=== PATIENT | male | born 1980 | race Caucasian/White ===

== ENCOUNTER 2017-08-24 04:51 | Inpatient (IN) | payer OTHER ==
[~2017-08-24] VITALS: Ht 180.3 cm; Wt 63.5 kg
[2017-08-24 07:52] VITALS: BP 116/75
[2017-08-24] MEDS ORDERED: ENOXAPARIN 40 MG/0.4 ML SQ SCH (11:00)
[2017-08-24] MEDS ORDERED: ACETAMINOPHEN 325 MG TABLET PO PRN (11:00)
[2017-08-24] MEDS ORDERED: ONDANSETRON ODT 4 MG PO PRN (11:00)
[2017-08-24] MEDS ORDERED: hydrALAzine 20 MG/ML, 1ML IVPush PRN (11:00)
[2017-08-24] MEDS: HYDROmorphone 2 MG/ML, 1ML IVPush PRN ×4 (12:02→23:06)
[2017-08-24 12:19] LABS: MEAN CORPUSCULAR HEMOGLOBIN 38.2 pg (27.5-34.5); MEAN CORPUSCULAR HGB CONC 34.4 g/dL (33.2-36.2); MEAN CORPUSCULAR VOLUME 111.1 fL (81-97); MEAN PLATELET VOLUME 9.8 fL (7.4-10.4); PLATELET COUNT 131 x10^3/uL (130-400); RED BLOOD COUNT 3.88 x10^6/uL (4.38-5.82)
[2017-08-24 12:26] LABS: ALANINE AMINOTRANSFERASE 103 U/L (12-78); ALBUMIN 3.2 g/dL (3.4-5.0); ANION GAP 9 mmol/L (5-15); CALCIUM 7.9 mg/dL (8.5-10.1); CHLORIDE 99 mmol/L (98-107)
[2017-08-24 12:39] LABS: ALKALINE PHOSPHATASE 79 U/L (45-117); BILIRUBIN,TOTAL 1.2 mg/dL (0.2-1.0); TOTAL PROTEIN 6.2 g/dL (6.4-8.2)
[2017-08-24 13:04] LABS: BASOPHILS # (AUTO) 0.03 x10^3/uL (0-0.1); BASOPHILS % (AUTO) 0 % (0-1); EOSINOPHILS # (AUTO) 0.49 x10^3/uL (0-0.4); EOSINOPHILS % (AUTO) 7 % (1-7); LYMPHOCYTES # (AUTO) 0.79 x10^3/uL (1-3.4); LYMPHOCYTES % (AUTO) 11 % (22-44); MD MORPH REVIEW ONLY; MONOCYTES # (AUTO) 1.14 x10^3/uL (0.2-0.8); MONOCYTES % (AUTO) 15 % (2-9); NEUTROPHILS # (AUTO) 5.06 x10^3/uL (1.8-6.8); NEUTROPHILS % (AUTO) 67 % (42-75)
[2017-08-24 13:07] LABS: <PLATELET ESTIMATE> ADEQUATE; ANISOCYTOSIS 1+; LARGE PLATELETS 1+
[2017-08-24] MEDS: D5%-0.9% NACL+KCL 20MEQ 1,000 ML IV SCH (14:23)
[2017-08-24 14:38] VITALS: BP 113/77
[2017-08-24] MEDS ORDERED: POTASSIUM CHLORIDE 20 MEQ TAB.ER.PRT PO ONE (15:00)
[2017-08-24 18:40] VITALS: BP 109/73
[2017-08-25] MEDS: D5%-0.9% NACL+KCL 20MEQ 1,000 ML IV SCH ×3 (00:26→21:18)
[2017-08-25 02:10] VITALS: BP 122/76
[2017-08-25] MEDS: HYDROmorphone 2 MG/ML, 1ML IVPush PRN ×2 (04:54→08:06)
[2017-08-25 05:40] LABS: CHLORIDE 104 mmol/L (98-107)
[2017-08-25 06:12] LABS: ALANINE AMINOTRANSFERASE 85 U/L (12-78); ALBUMIN 2.9 g/dL (3.4-5.0); ALKALINE PHOSPHATASE 69 U/L (45-117); ANION GAP 9 mmol/L (5-15); BILIRUBIN,TOTAL 0.9 mg/dL (0.2-1.0); CALCIUM 8.2 mg/dL (8.5-10.1); CHOL/HDL RATIO 2.8; CHOLESTEROL, TOTAL 111 mg/dL (140-239); CREATININE 0.54 mg/dL (0.7-1.3); HDL CHOL % 35 % (26-37); HDL CHOLESTEROL (DIRECT) 39 mg/dL (40-60); LDL CHOLESTEROL,CALCULATED 57 mg/dL (54-169); LDL/HDL RATIO 1.5 (0.5-3.0); TOTAL PROTEIN 5.5 g/dL (6.4-8.2); TRIGLYCERIDES 77 mg/dL (50-200); VLDL CHOLESTEROL 15 mg/dL (0-25)
[2017-08-25 06:40] LABS: BASOPHILS # (AUTO) 0.03 x10^3/uL (0-0.1); BASOPHILS % (AUTO) 1 % (0-1); EOSINOPHILS # (AUTO) 0.53 x10^3/uL (0-0.4); EOSINOPHILS % (AUTO) 9 % (1-7); LYMPHOCYTES # (AUTO) 0.99 x10^3/uL (1-3.4); LYMPHOCYTES % (AUTO) 17 % (22-44); MD SCAN; MEAN CORPUSCULAR HEMOGLOBIN 38.8 pg (27.5-34.5); MEAN CORPUSCULAR HGB CONC 34.8 g/dL (33.2-36.2); MEAN CORPUSCULAR VOLUME 111.4 fL (81-97); MEAN PLATELET VOLUME 9.8 fL (7.4-10.4); MONOCYTES # (AUTO) 1.05 x10^3/uL (0.2-0.8); MONOCYTES % (AUTO) 18 % (2-9); NEUTROPHILS # (AUTO) 3.18 x10^3/uL (1.8-6.8); NEUTROPHILS % (AUTO) 55 % (42-75); PLATELET COUNT 147 x10^3/uL (130-400); RED BLOOD COUNT 3.59 x10^6/uL (4.38-5.82); RED CELL DISTRIBUTION WIDTH 15.3 % (9.4-14.8)
[2017-08-25 07:19] VITALS: BP 102/65
[2017-08-25] MEDS ORDERED: SODIUM PHOSPHATE 20 MMOL in SODIUM CHLORIDE 0.9% 500 ML IV ONE (10:30)
[2017-08-25] MEDS: KETOROLAC 30 MG/1 ML IVPush PRN ×2 (11:01→18:24)
[2017-08-25 13:26] VITALS: BP 107/70
[2017-08-25 19:57] VITALS: BP 108/73
[2017-08-26] MEDS: MORPHINE SULFATE 4 MG/ML, 1ML IVPush PRN ×2 (00:35→20:20)
[2017-08-26 02:25] VITALS: BP 117/77
[2017-08-26] MEDS: KETOROLAC 30 MG/1 ML IVPush PRN ×3 (04:22→18:11)
[2017-08-26] MEDS: D5%-0.9% NACL+KCL 20MEQ 1,000 ML IV SCH ×3 (05:58→20:11)
[2017-08-26 05:59] LABS: ALBUMIN 2.7 g/dL (3.4-5.0); ANION GAP 6 mmol/L (5-15); CALCIUM 7.7 mg/dL (8.5-10.1); CHLORIDE 108 mmol/L (98-107); CREATININE 0.51 mg/dL (0.7-1.3)
[2017-08-26 08:08] VITALS: BP 106/71
[2017-08-26 13:33] VITALS: BP 106/68
[2017-08-26 20:53] VITALS: BP 125/87
[2017-08-27] MEDS: KETOROLAC 30 MG/1 ML IVPush PRN ×4 (00:18→20:36)
[2017-08-27 02:49] VITALS: BP 111/71
[2017-08-27] MEDS: D5%-0.9% NACL+KCL 20MEQ 1,000 ML IV SCH ×3 (02:51→20:36)
[2017-08-27 05:44] LABS: ALBUMIN 2.8 g/dL (3.4-5.0); ANION GAP 5 mmol/L (5-15); CALCIUM 8.3 mg/dL (8.5-10.1); CHLORIDE 108 mmol/L (98-107); CREATININE 0.58 mg/dL (0.7-1.3)
[2017-08-27 07:07] VITALS: BP 109/70
[2017-08-27 14:09] VITALS: BP 112/76
[2017-08-27] MEDS: MORPHINE SULFATE 4 MG/ML, 1ML IVPush PRN ×2 (15:23→23:06)
[2017-08-27 20:00] VITALS: BP 113/81
[2017-08-28] MEDS: D5%-0.9% NACL+KCL 20MEQ 1,000 ML IV SCH ×3 (03:21→18:18)
[2017-08-28] MEDS: KETOROLAC 30 MG/1 ML IVPush PRN ×3 (03:27→18:18)
[2017-08-28 04:01] VITALS: BP 115/76
[2017-08-28 07:15] VITALS: BP 104/69
[2017-08-28 13:41] VITALS: BP 111/79
[2017-08-28 19:42] VITALS: BP 117/75
[2017-08-29] MEDS: D5%-0.9% NACL+KCL 20MEQ 1,000 ML IV SCH (00:32)
[2017-08-29 00:34] VITALS: BP 117/75
[2017-08-29 08:00] VITALS: BP 112/74
[2017-08-29] MEDS ORDERED: SODIUM CHLORIDE 0.9% 1,000 ML IV SCH (09:00)
[2017-08-29] MEDS ORDERED: ACET325T14 PO (13:01)
== END 2017-08-29 14:25 | disposition home or self-care (01) | DRG 438 ==
LOC: 3NE 07:18
PROVIDERS: ADMIT Internal Medicine; ATTEND Hospitalist
DX: K85.10 Biliary acute pancreatitis without necrosis or infection (principal); E43 Unspecified severe protein-calorie malnutrition; Z68.1 Body mass index [BMI] 19.9 or less, adult; E87.6 Hypokalemia; D75.89 Other specified diseases of blood and blood-forming organs; F10.10 Alcohol abuse, uncomplicated; Z72.0 Tobacco use
CPT/HCPCS: 36415; 74181; 80048; 80053; 80061; 82040; 83690; 83735; 84100; 85025; 99285; J1170; J1650; J1885; Q0162; J3480; J7040